=== PATIENT | female | born 1945 | race Caucasian/White ===

== ENCOUNTER → 2024-10-13 | Outpatient (CLI) | payer MEDICARE ==
[2024-10-13 20:23] LABS: Creatinine, Urine Random 68.1 mg/dL (27.00-270.00); Microalb/Creat Ratio UR, Rand 252.57 mg/g (0.000-30.000); Microalbumin, Random Urine 172.0 mg/L (0.000-20.000)
== END ==
LOC: LAB SHORT 13:44 → LAB 13:44
PROVIDERS: Family Medicine
DX: E11.65 Type 2 diabetes mellitus with hyperglycemia (principal); Z79.4 Long term (current) use of insulin
CPT/HCPCS: 82043; 82570